=== PATIENT | female | born 1990 | race Caucasian/White ===

== ENCOUNTER 2021-01-04 04:55 | Inpatient (IN) | payer BC ==
[~2021-01-04] VITALS: Ht 162.6 cm; Wt 63.5 kg
[2021-01-04] MEDS ORDERED: MORPHINE SULFATE INJ 4 MG/ML INJ 1ML IV STA (05:41)
[2021-01-04] MEDS ORDERED: SODIUM CHLORIDE 0.9% 1000ML 1,000 ML IV STA ×2 (05:41→07:11)
[2021-01-04] MEDS ORDERED: ONDANSETRON HCL INJ 2MG/ML 2ML 2 MG/ML VIAL IV STA (05:41)
[2021-01-04] MEDS ORDERED: PIPER-TAZ 3.375 GM 50 ML IV ONE (06:30)
[2021-01-04] MEDS ORDERED: VANCOMYCIN 1GM/NS 250 ML 250 ML IV ONE (06:30)
[2021-01-04] MEDS ORDERED: PIPERACILLIN/TAZOBAC 3.375 GM VIAL ONE (06:40)
[2021-01-04] MEDS ORDERED: SODIUM CHLORIDE 0.9% 50ML 50 ML ONE ×3 (06:40→18:00)
[2021-01-04] MEDS ORDERED: VANCOMYCIN 1GM/NS 250 ML 250 ML ONE (06:40)
[2021-01-04] MEDS ORDERED: MORPHINE SULFATE INJ 2 MG/ML SYR IV PRN (06:45)
[2021-01-04] MEDS ORDERED: ONDANSETRON HCL INJ 2MG/ML 2ML 2 MG/ML VIAL IV PRN (06:45)
[2021-01-04 06:55] LABS: INR 1.14; PROTHROMBIN TIME 15.4 seconds (11.9-14.5)
[2021-01-04 06:56] LABS: PARTIAL THROMBOPLASTIN TIME 38.5 seconds (23.8-35.5)
[2021-01-04 07:05] LABS: B-TYPE NATRIURETIC PEPTIDE2 40.4 pg/mL (0-100)
[2021-01-04 07:21] LABS: BASOPHILS # (AUTO) 0.1 (0.0-0.1); BASOPHILS % 0.4 % (0.0-1.0); EOSINOPHILS % 0.3 % (0.0-6.0); HEMATOCRIT 31.5 % (34.2-44.1); HEMOGLOBIN 10.6 g/dL (12.0-16.0); LYMPHOCYTES % 7.3 % (18.0-39.1); MEAN CORPUSCULAR HEMOGLOBIN 27.3 pg (28-32); MEAN CORPUSCULAR HGB CONC 33.7 g/dL (31-35); MEAN CORPUSCULAR VOLUME 81.2 fL (81-99); MONOCYTES # (AUTO) 0.8 (0.2-0.8); MONOCYTES % 5.7 % (4.4-11.3); NEUTROPHILS # (AUTO) 11.7 (2.1-6.9); NEUTROPHILS % 85.3 % (38.7-80.0); PLATELET COUNT 165 x10e3/uL (140-360); RED BLOOD COUNT 3.88 x10e6/uL (3.6-5.1); RED CELL DISTRIBUTION WIDTH 15.8 % (11.7-14.4)
[2021-01-04] MEDS ORDERED: SODIUM CHLORIDE 0.9% 1000ML 1,000 ML ONE (07:21)
[2021-01-04 07:24] LABS: CLARITY,URINE CLOUDY (CLEAR); COLOR,URINE YELLOW (YELLOW); KETONES,URINE NEGATIVE (NEGATIVE); LEUKOCYTE ESTERASE ,URINE TRACE (NEGATIVE); NITRITE,URINE NEGATIVE (NEGATIVE); PROTEIN,URINE DIPSTICK 2+ (NEGATIVE); URINE UROBILINOGEN 0.2 mg/dL (0.2 - 1)
[2021-01-04 07:26] LABS: ALANINE AMINOTRANSFERASE 11 IU/L (0-55); ALBUMIN 2.6 g/dL (3.5-5.0); ALBUMIN/GLOBULIN RATIO 0.6 (0.8-2.0); ALKALINE PHOSPHATASE 105 IU/L (40-150); BLOOD UREA NITROGEN 10 mg/dL (7-26); BUN/CREATININE RATIO 14 (6-25); CALCIUM 8.5 mg/dL (8.4-10.2); CARBON DIOXIDE 21 mmol/L (22-29); CHLORIDE 99 mmol/L (98-107); CREATINE KINASE 39 IU/L (29-168); EST GLOMERULAR FILTRATION RATE > 60 ML/MIN (60-); GLUCOSE 117 mg/dL (74-118); MAGNESIUM 1.5 MG/DL (1.3-2.1); SODIUM 134 mmol/L (136-145)
[2021-01-04 07:29] LABS: AMPHETAMINES SCREEN,URINE POSITIVE (NEGATIVE); BENZODIAZEPINES SCREEN,URINE NEGATIVE (NEGATIVE); PHENCYCLIDINE SCREEN,URINE NEGATIVE (NEGATIVE)
[2021-01-04 07:34] LABS: BACTERIA,URINE FEW /HPF; EPITHELIAL CELLS,URINE MANY /LPF; RBC,URINE 0-5 /HPF (0-5)
[2021-01-04] MEDS ORDERED: POTASSIUM CHLORIDE 20 MEQ TAB CR PO STA ×3 (07:46→21:05)
[2021-01-04] MEDS ORDERED: DOCUSATE SODIUM 100 MG CAP PO PRN (08:15)
[2021-01-04] MEDS ORDERED: KCL 20MEQ/.9 SOD CHL 1,000 ML IV ONE (08:30)
[2021-01-04] MEDS: FAMOTIDINE 20 MG/2 ML VIAL IV SCH ×2 (09:47→21:37)
[2021-01-04] MEDS ORDERED: IOPAMIDOL 370 MG/ML 200 ML INFUS..BTL INJ ONE (10:14)
[2021-01-04 10:18] LABS: HIV 1&2 AB SCREEN NON-REACTIVE (NONREACTIVE)
[2021-01-04 11:00] VITALS: BP 113/71
[2021-01-04] MEDS ORDERED: PNEUMOCOCCAL VACCINE POLYVALENT 23 MCG/0.5 ML VIAL IM SCH (11:00)
[2021-01-04] MEDS ORDERED: INFLUENZA VIRUS VAC SPLIT INJ 0.5 ML SYR IM SCH (11:00)
[2021-01-04] MEDS ORDERED: HYDROMORPHONE 1MG/1ML INJ IV PRN (11:45)
[2021-01-04] MEDS: HYDROMORPHONE 1MG/1ML INJ IV PRN ×3 (12:01→19:20)
[2021-01-04] MEDS: MULTIVITAMINS/MINERALS TAB PO SCH (12:36)
[2021-01-04] MEDS: TRAMADOL HCL 50 MG TAB PO PRN ×2 (14:10→20:11)
[2021-01-04] MEDS: ENOXAPARIN SOD INJ 40 MG/0.4 ML SYR SC SCH (16:38)
[2021-01-04] MEDS: FAMOTIDINE 20 MG TAB PO SCH (16:38)
[2021-01-04] MEDS: CEFEPIME HCL 1GM 1 GM in SODIUM CHLORIDE 0.9% 50ML 50 ML IV SCH (17:47)
[2021-01-04] MEDS ORDERED: CEFEPIME HCL 1 GM VIAL ONE (17:59)
[2021-01-04] MEDS: VANCOMYCIN 1GM/NS 250 ML 250 ML IV SCH (19:19)
[2021-01-04 19:42] LABS: BASOPHILS % 0.4 % (0.0-1.0); EOSINOPHILS # (AUTO) 0.1 (0.0-0.4); EOSINOPHILS % 0.5 % (0.0-6.0); HEMATOCRIT 25.9 % (34.2-44.1); HEMOGLOBIN 8.5 g/dL (12.0-16.0); LYMPHOCYTES # (AUTO) 1.3 (1.0-3.2); MEAN CORPUSCULAR HGB CONC 32.8 g/dL (31-35); MEAN CORPUSCULAR VOLUME 82.2 fL (81-99); MONOCYTES # (AUTO) 0.8 (0.2-0.8); MONOCYTES % 7.2 % (4.4-11.3); NEUTROPHILS # (AUTO) 8.4 (2.1-6.9); NEUTROPHILS % 79.1 % (38.7-80.0); PLATELET COUNT 148 x10e3/uL (140-360); RED BLOOD COUNT 3.15 x10e6/uL (3.6-5.1); RED CELL DISTRIBUTION WIDTH 16.1 % (11.7-14.4)
[2021-01-04 20:00] VITALS: BP 89/55
[2021-01-04 20:07] LABS: ANION GAP 12.6 mmol/L (8-16); BLOOD UREA NITROGEN < 5 mg/dL (7-26); CALCIUM 7.5 mg/dL (8.4-10.2); CARBON DIOXIDE 23 mmol/L (22-29); CHLORIDE 102 mmol/L (98-107); CREATININE, SERUM 0.65 mg/dL (0.57-1.11); EST GLOMERULAR FILTRATION RATE > 60 ML/MIN (60-); GLUCOSE 151 mg/dL (74-118); MAGNESIUM 1.5 MG/DL (1.3-2.1); PHOSPHORUS 1.8 MG/DL (2.3-4.7); SODIUM 135 mmol/L (136-145)
[2021-01-04] MEDS: ACETAMINOPHEN 325 MG TAB PO PRN (20:10)
[2021-01-04 20:14] LABS: CREATINE KINASE MB 0.5 ng/mL (0-5.0)
[2021-01-04 20:33] LABS: BUN/CREATININE RATIO 8 (6-25); POTASSIUM 2.6 mmol/L (3.5-5.1)
[2021-01-04 21:00] VITALS: BP 89/55
[2021-01-04] MEDS ORDERED: POTASSIUM CHLORIDE 10MEQ/100ML 200 ML IV ONE (21:15)
[2021-01-04] MEDS ORDERED: POTASSIUM CHLORIDE 10MEQ/100ML 100 ML IV ONE ×2 (22:45)
[2021-01-04] MEDS ORDERED: SODIUM CHLORIDE 0.9% 250ML 250 ML ONE (23:32)
[2021-01-05] VITALS (7 sets, daily range): BP systolic 94–126; BP diastolic 63–81
[2021-01-05] MEDS: HYDROMORPHONE 1MG/1ML INJ IV PRN ×6 (00:25→21:28)
[2021-01-05] MEDS: TRAMADOL HCL 50 MG TAB PO PRN ×2 (02:55→09:00)
[2021-01-05] MEDS ORDERED: POTASSIUM CHLORIDE 10MEQ/100ML 100 ML IV ONE (03:15)
[2021-01-05] MEDS ORDERED: CEFEPIME HCL 1 GM VIAL ONE ×2 (04:46→17:25)
[2021-01-05] MEDS ORDERED: SODIUM CHLORIDE 0.9% 50ML 50 ML ONE ×2 (04:50→17:26)
[2021-01-05] MEDS: CEFEPIME HCL 1GM 1 GM in SODIUM CHLORIDE 0.9% 50ML 50 ML IV SCH ×2 (05:49→17:28)
[2021-01-05] MEDS ORDERED: VANCOMYCIN 1GM/NS 250 ML 250 ML IV SCH (06:00)
[2021-01-05] MEDS ORDERED: CEFEPIME 1GM/NS 0.9% 50 ML 50 ML IV SCH (06:00)
[2021-01-05 06:12] LABS: HEMATOCRIT 26.5 % (34.2-44.1); HEMOGLOBIN 8.7 g/dL (12.0-16.0); MEAN CORPUSCULAR HGB CONC 32.8 g/dL (31-35); MEAN CORPUSCULAR VOLUME 82.3 fL (81-99); PLATELET COUNT 176 x10e3/uL (140-360); RED BLOOD COUNT 3.22 x10e6/uL (3.6-5.1); RED CELL DISTRIBUTION WIDTH 16.1 % (11.7-14.4)
[2021-01-05 06:27] LABS: ALANINE AMINOTRANSFERASE 11 IU/L (0-55); ALBUMIN 2.1 g/dL (3.5-5.0); ALBUMIN/GLOBULIN RATIO 0.6 (0.8-2.0); ALKALINE PHOSPHATASE 80 IU/L (40-150); ANION GAP 11.8 mmol/L (8-16); BLOOD UREA NITROGEN < 5 mg/dL (7-26); BUN/CREATININE RATIO 8 (6-25); CALCIUM 7.6 mg/dL (8.4-10.2); CARBON DIOXIDE 24 mmol/L (22-29); CHLORIDE 104 mmol/L (98-107); CHOL/HDL RATIO 6.2 (3.0-3.6); CHOLESTEROL 74 MD/DL (0-199); CREATININE, SERUM 0.61 mg/dL (0.57-1.11); EST GLOMERULAR FILTRATION RATE > 60 ML/MIN (60-); GLUCOSE 114 mg/dL (74-118); HDL CHOLESTEROL 12 MG/DL (40-60); LDL CHOLESTEROL 49 MG/DL (60-130); POTASSIUM 3.8 mmol/L (3.5-5.1); SODIUM 136 mmol/L (136-145); TRIGLYCERIDES 63 MG/DL (0-149)
[2021-01-05 06:51] LABS: CREATINE KINASE MB 0.4 ng/mL (0-5.0)
[2021-01-05] MEDS: ACETAMINOPHEN 325 MG TAB PO PRN (06:56)
[2021-01-05 07:18] LABS: BAND NEUTROPHILS % (MANUAL) 2 %; LYMPHOCYTES % (MANUAL) 9 % (19-48); MONOCYTES % (MANUAL) 5 % (3.4-9.0); NEUTROPHILS % (MANUAL) 84 % (40-74)
[2021-01-05] MEDS: FAMOTIDINE 20 MG TAB PO SCH ×2 (07:30→17:28)
[2021-01-05] MEDS: FAMOTIDINE 20 MG/2 ML VIAL IV SCH (08:33)
[2021-01-05] MEDS: MULTIVITAMINS/MINERALS TAB PO SCH (08:33)
[2021-01-05] MEDS: VANCOMYCIN 1GM/NS 250 ML 250 ML IV SCH ×2 (09:15→20:46)
[2021-01-05] MEDS: HYDROCODONE/APAP 5MG-325MG TAB PO PRN ×2 (15:20→21:34)
[2021-01-06] VITALS (11 sets, daily range): BP systolic 103–130; BP diastolic 71–92
[2021-01-06] MEDS: HYDROMORPHONE 1MG/1ML INJ IV PRN ×6 (01:28→21:25)
[2021-01-06] MEDS: ACETAMINOPHEN 325 MG TAB PO PRN ×2 (03:38→21:35)
[2021-01-06] MEDS: HYDROCODONE/APAP 5MG-325MG TAB PO PRN ×3 (04:19→19:35)
[2021-01-06 05:48] LABS: BASOPHILS # (AUTO) 0.1 (0.0-0.1); BASOPHILS % 0.4 % (0.0-1.0); EOSINOPHILS # (AUTO) 0.3 (0.0-0.4); EOSINOPHILS % 2.3 % (0.0-6.0); HEMATOCRIT 27.1 % (34.2-44.1); LYMPHOCYTES # (AUTO) 2.4 (1.0-3.2); LYMPHOCYTES % 19.6 % (18.0-39.1); MEAN CORPUSCULAR HEMOGLOBIN 27.4 pg (28-32); MEAN CORPUSCULAR HGB CONC 33.2 g/dL (31-35); MEAN CORPUSCULAR VOLUME 82.4 fL (81-99); MONOCYTES % 8.2 % (4.4-11.3); NEUTROPHILS # (AUTO) 8.2 (2.1-6.9); NEUTROPHILS % 67.6 % (38.7-80.0); PLATELET COUNT 238 x10e3/uL (140-360); RED BLOOD COUNT 3.29 x10e6/uL (3.6-5.1)
[2021-01-06 06:25] LABS: INR 1.27; PROTHROMBIN TIME 16.8 seconds (11.9-14.5)
[2021-01-06 06:26] LABS: PARTIAL THROMBOPLASTIN TIME 47.1 seconds (23.8-35.5)
[2021-01-06 06:52] LABS: ANION GAP 10.5 mmol/L (8-16); BLOOD UREA NITROGEN < 5 mg/dL (7-26); CALCIUM 8.3 mg/dL (8.4-10.2); CARBON DIOXIDE 25 mmol/L (22-29); CHLORIDE 101 mmol/L (98-107); CREATININE, SERUM 0.61 mg/dL (0.57-1.11); EST GLOMERULAR FILTRATION RATE > 60 ML/MIN (60-); GLUCOSE 114 mg/dL (74-118); POTASSIUM 3.5 mmol/L (3.5-5.1); SODIUM 133 mmol/L (136-145)
[2021-01-06 06:54] LABS: BUN/CREATININE RATIO 8 (6-25)
[2021-01-06] MEDS: FAMOTIDINE 20 MG TAB PO SCH ×2 (07:30→17:25)
[2021-01-06] MEDS ORDERED: BENZOCAINE 20% SPR 60 ML CAN ONE (08:44)
[2021-01-06] MEDS ORDERED: SODIUM CHLORIDE 0.9% 1000ML 1,000 ML ONE (08:52)
[2021-01-06] MEDS: VANCOMYCIN 1GM/NS 250 ML 250 ML IV SCH ×2 (09:52→21:01)
[2021-01-06] MEDS ORDERED: FENTANYL CITRATE/PF 100MCG/2 ML INJ ONE (12:15)
[2021-01-06] MEDS ORDERED: MIDAZOLAM HCL 5 MG/ML VIAL ONE (12:15)
[2021-01-06] MEDS ORDERED: PROPOFOL IV EMULSION 10 MG/ML 20 ML VIAL ONE (12:41)
[2021-01-06] MEDS: MULTIVITAMINS/MINERALS TAB PO SCH (17:25)
[2021-01-06] MEDS: METOPROLOL SUCCINATE 25 MG TAB XL PO SCH (17:25)
[2021-01-07] VITALS (8 sets, daily range): BP systolic 100–132; BP diastolic 62–96
[2021-01-07] MEDS: HYDROCODONE/APAP 5MG-325MG TAB PO PRN ×4 (01:35→20:44)
[2021-01-07] MEDS: HYDROMORPHONE 1MG/1ML INJ IV PRN ×5 (03:20→23:45)
[2021-01-07] MEDS: FAMOTIDINE 20 MG TAB PO SCH ×2 (08:16→16:59)
[2021-01-07] MEDS: MULTIVITAMINS/MINERALS TAB PO SCH (08:16)
[2021-01-07] MEDS: VANCOMYCIN 1GM/NS 250 ML 250 ML IV SCH (08:16)
[2021-01-07] MEDS: METOPROLOL SUCCINATE 25 MG TAB XL PO SCH (08:17)
[2021-01-07] MEDS: ACETAMINOPHEN 325 MG TAB PO PRN (08:19)
[2021-01-07 08:42] LABS: BASOPHILS # (AUTO) 0.1 (0.0-0.1); BASOPHILS % 0.4 % (0.0-1.0); EOSINOPHILS # (AUTO) 0.3 (0.0-0.4); EOSINOPHILS % 2.4 % (0.0-6.0); HEMATOCRIT 27.5 % (34.2-44.1); LYMPHOCYTES # (AUTO) 1.6 (1.0-3.2); MEAN CORPUSCULAR HEMOGLOBIN 26.9 pg (28-32); MEAN CORPUSCULAR HGB CONC 32.7 g/dL (31-35); MEAN CORPUSCULAR VOLUME 82.3 fL (81-99); MONOCYTES # (AUTO) 0.7 (0.2-0.8); MONOCYTES % 5.4 % (4.4-11.3); NEUTROPHILS # (AUTO) 10.6 (2.1-6.9); NEUTROPHILS % 77.5 % (38.7-80.0); PLATELET COUNT 334 x10e3/uL (140-360); RED BLOOD COUNT 3.34 x10e6/uL (3.6-5.1)
[2021-01-07] MEDS ORDERED: POTASSIUM CHLORIDE 20 MEQ TAB CR PO ONE (10:30)
[2021-01-07] MEDS ORDERED: DAPTOMYCIN 500mg 10ML 500 MG in SODIUM CHLORIDE 0.9% 100 ML IV SCH (14:00)
[2021-01-07] MEDS: ENOXAPARIN SOD INJ 40 MG/0.4 ML SYR SC SCH (16:59)
[2021-01-08] VITALS (7 sets, daily range): BP systolic 107–134; BP diastolic 63–98
[2021-01-08] MEDS: ACETAMINOPHEN 325 MG TAB PO PRN (01:19)
[2021-01-08] MEDS: HYDROCODONE/APAP 5MG-325MG TAB PO PRN ×2 (02:45→08:54)
[2021-01-08] MEDS: HYDROMORPHONE 1MG/1ML INJ IV PRN ×5 (03:45→20:00)
[2021-01-08 06:46] LABS: BASOPHILS # (AUTO) 0.1 (0.0-0.1); BASOPHILS % 0.5 % (0.0-1.0); EOSINOPHILS # (AUTO) 0.5 (0.0-0.4); EOSINOPHILS % 3.8 % (0.0-6.0); HEMOGLOBIN 9.1 g/dL (12.0-16.0); LYMPHOCYTES # (AUTO) 2.1 (1.0-3.2); LYMPHOCYTES % 15.5 % (18.0-39.1); MEAN CORPUSCULAR HGB CONC 32.5 g/dL (31-35); MEAN CORPUSCULAR VOLUME 83.1 fL (81-99); MONOCYTES % 7.2 % (4.4-11.3); NEUTROPHILS # (AUTO) 9.2 (2.1-6.9); NEUTROPHILS % 69.4 % (38.7-80.0); PLATELET COUNT 384 x10e3/uL (140-360); RED BLOOD COUNT 3.37 x10e6/uL (3.6-5.1); RED CELL DISTRIBUTION WIDTH 15.9 % (11.7-14.4)
[2021-01-08 07:00] LABS: ANION GAP 13.2 mmol/L (8-16); BLOOD UREA NITROGEN < 5 mg/dL (7-26); CALCIUM 8.3 mg/dL (8.4-10.2); CARBON DIOXIDE 26 mmol/L (22-29); CHLORIDE 106 mmol/L (98-107); CREATININE, SERUM 0.56 mg/dL (0.57-1.11); EST GLOMERULAR FILTRATION RATE > 60 ML/MIN (60-); GLUCOSE 104 mg/dL (74-118); POTASSIUM 4.2 mmol/L (3.5-5.1); SODIUM 141 mmol/L (136-145)
[2021-01-08 07:01] LABS: BUN/CREATININE RATIO 9 (6-25)
[2021-01-08] MEDS: MULTIVITAMINS/MINERALS TAB PO SCH (08:49)
[2021-01-08] MEDS: FAMOTIDINE 20 MG TAB PO SCH ×2 (08:49→15:58)
[2021-01-08] MEDS: METOPROLOL SUCCINATE 25 MG TAB XL PO SCH (08:52)
[2021-01-08] MEDS ORDERED: ONDANSETRON HCL 4 MG ORAL DISINTEGRATING TAB PO PRN (11:45)
[2021-01-08] MEDS ORDERED: SODIUM CHLORIDE 0.9% 50ML 50 ML ONE (11:49)
[2021-01-08] MEDS ORDERED: IOPAMIDOL 370 MG/ML 200 ML INFUS..BTL INJ ONE (11:49)
[2021-01-08 13:04] LABS: HIV 1&2 AB SCREEN NON-REACTIVE (NONREACTIVE)
[2021-01-08] MEDS: CEFAZOLIN SOD 1 GM/NS 50ML 50 ML IV SCH ×2 (14:33→22:01)
[2021-01-08] MEDS: HYDROCODONE/APAP 7.5MG-325MG 1 EA TAB PO PRN ×2 (15:06→21:05)
[2021-01-08] MEDS: ENOXAPARIN SOD INJ 40 MG/0.4 ML SYR SC SCH (15:58)
[2021-01-09] VITALS (7 sets, daily range): BP systolic 111–153; BP diastolic 73–83
[2021-01-09] MEDS: HYDROCODONE/APAP 7.5MG-325MG 1 EA TAB PO PRN ×4 (03:15→21:40)
[2021-01-09] MEDS: HYDROMORPHONE 1MG/1ML INJ IV PRN ×6 (04:10→20:11)
[2021-01-09] MEDS: CEFAZOLIN SOD 1 GM/NS 50ML 50 ML IV SCH ×3 (05:44→21:55)
[2021-01-09] MEDS: FAMOTIDINE 20 MG TAB PO SCH ×2 (07:30→16:11)
[2021-01-09] MEDS: MULTIVITAMINS/MINERALS TAB PO SCH (09:00)
[2021-01-09] MEDS: METOPROLOL SUCCINATE 25 MG TAB XL PO SCH (09:00)
[2021-01-09] MEDS: ENOXAPARIN SOD INJ 40 MG/0.4 ML SYR SC SCH (16:11)
[2021-01-09] MEDS: MIRTAZAPINE 15 MG TAB PO SCH (20:25)
[2021-01-10] VITALS (7 sets, daily range): BP systolic 91–116; BP diastolic 56–72
[2021-01-10] MEDS: HYDROMORPHONE 1MG/1ML INJ IV PRN ×6 (00:11→22:35)
[2021-01-10] MEDS: ZOLPIDEM TARTRATE 5 MG TAB PO PRN ×2 (00:21→21:56)
[2021-01-10] MEDS: HYDROCODONE/APAP 7.5MG-325MG 1 EA TAB PO PRN ×3 (04:07→16:39)
[2021-01-10] MEDS: CEFAZOLIN SOD 1 GM/NS 50ML 50 ML IV SCH ×3 (05:10→22:36)
[2021-01-10] MEDS: FAMOTIDINE 20 MG TAB PO SCH ×2 (09:04→16:39)
[2021-01-10] MEDS: MULTIVITAMINS/MINERALS TAB PO SCH (09:04)
[2021-01-10] MEDS: METOPROLOL SUCCINATE 25 MG TAB XL PO SCH (09:06)
[2021-01-10] MEDS: ENOXAPARIN SOD INJ 40 MG/0.4 ML SYR SC SCH (16:39)
[2021-01-10] MEDS: MIRTAZAPINE 15 MG TAB PO SCH (21:54)
[2021-01-11] VITALS (9 sets, daily range): BP systolic 87–112; BP diastolic 55–82
[2021-01-11] MEDS: HYDROCODONE/APAP 7.5MG-325MG 1 EA TAB PO PRN ×4 (00:28→19:50)
[2021-01-11] MEDS: HYDROMORPHONE 1MG/1ML INJ IV PRN ×5 (03:33→22:14)
[2021-01-11] MEDS: CEFAZOLIN SOD 1 GM/NS 50ML 50 ML IV SCH ×3 (06:01→22:13)
[2021-01-11] MEDS: FAMOTIDINE 20 MG TAB PO SCH ×2 (06:30→17:40)
[2021-01-11] MEDS: METOPROLOL SUCCINATE 25 MG TAB XL PO SCH (09:00)
[2021-01-11] MEDS: MULTIVITAMINS/MINERALS TAB PO SCH (09:00)
[2021-01-11] MEDS: MIRTAZAPINE 15 MG TAB PO SCH (20:38)
[2021-01-12] VITALS (8 sets, daily range): BP systolic 100–132; BP diastolic 72–77
[2021-01-12] MEDS: HYDROMORPHONE 1MG/1ML INJ IV PRN ×6 (02:26→23:15)
[2021-01-12] MEDS: HYDROCODONE/APAP 7.5MG-325MG 1 EA TAB PO PRN ×5 (03:45→21:47)
[2021-01-12 04:52] LABS: BASOPHILS % 0.8 % (0.0-1.0); EOSINOPHILS % 3.6 % (0.0-6.0); HEMATOCRIT 30.2 % (34.2-44.1); HEMOGLOBIN 9.3 g/dL (12.0-16.0); LYMPHOCYTES % 25.5 % (18.0-39.1); MEAN CORPUSCULAR HEMOGLOBIN 26.6 pg (28-32); MEAN CORPUSCULAR HGB CONC 30.8 g/dL (31-35); MEAN CORPUSCULAR VOLUME 86.5 fL (81-99); MONOCYTES % 5.9 % (4.4-11.3); PLATELET COUNT 492 x10e3/uL (140-360); RED BLOOD COUNT 3.49 x10e6/uL (3.6-5.1); RED CELL DISTRIBUTION WIDTH 15.6 % (11.7-14.4)
[2021-01-12 04:53] LABS: BASOPHILS # (AUTO) 0.1 (0.0-0.1); EOSINOPHILS # (AUTO) 0.4 (0.0-0.4); LYMPHOCYTES # (AUTO) 2.6 (1.0-3.2); MONOCYTES # (AUTO) 0.6 (0.2-0.8); NEUTROPHILS # (AUTO) 6.4 (2.1-6.9)
[2021-01-12 05:28] LABS: ANION GAP 14.2 mmol/L (8-16); BLOOD UREA NITROGEN 9 mg/dL (7-26); BUN/CREATININE RATIO 14 (6-25); CALCIUM 8.7 mg/dL (8.4-10.2); CARBON DIOXIDE 27 mmol/L (22-29); CHLORIDE 102 mmol/L (98-107); CREATININE, SERUM 0.64 mg/dL (0.57-1.11); EST GLOMERULAR FILTRATION RATE > 60 ML/MIN (60-); GLUCOSE 99 mg/dL (74-118); POTASSIUM 4.2 mmol/L (3.5-5.1); SODIUM 139 mmol/L (136-145)
[2021-01-12] MEDS: CEFAZOLIN SOD 1 GM/NS 50ML 50 ML IV SCH ×3 (06:36→21:09)
[2021-01-12] MEDS: MULTIVITAMINS/MINERALS TAB PO SCH (08:43)
[2021-01-12] MEDS: FAMOTIDINE 20 MG TAB PO SCH ×2 (08:43→18:00)
[2021-01-12] MEDS: METOPROLOL SUCCINATE 25 MG TAB XL PO SCH (08:44)
[2021-01-12] MEDS: MIRTAZAPINE 15 MG TAB PO SCH (21:09)
[2021-01-12] MEDS: ZOLPIDEM TARTRATE 5 MG TAB PO PRN (21:47)
[2021-01-12] MEDS ORDERED: MICAFUNGIN SODIUM 100 MG in MICAFUNGIN SODIUM 100 ML IV SCH (22:30)
[2021-01-13] VITALS: BP 98/60
[2021-01-13] MEDS: HYDROMORPHONE 1MG/1ML INJ IV PRN ×2 (03:15→07:16)
[2021-01-13] MEDS: HYDROCODONE/APAP 7.5MG-325MG 1 EA TAB PO PRN ×4 (03:50→23:15)
[2021-01-13 04:00] VITALS: BP 85/52
[2021-01-13] MEDS: CEFAZOLIN SOD 1 GM/NS 50ML 50 ML IV SCH ×3 (06:02→22:10)
[2021-01-13 08:14] VITALS: BP 96/71
[2021-01-13] MEDS: FAMOTIDINE 20 MG TAB PO SCH ×2 (09:57→16:09)
[2021-01-13] MEDS: MULTIVITAMINS/MINERALS TAB PO SCH (09:57)
[2021-01-13] MEDS: MICAFUNGIN SODIUM 100 MG in MICAFUNGIN SODIUM 100 ML IV SCH (10:01)
[2021-01-13] MEDS ORDERED: HYDROMORPHONE 1MG/1ML INJ IV PRN (11:45)
[2021-01-13] MEDS: METOPROLOL SUCCINATE 25 MG TAB XL PO SCH (11:46)
[2021-01-13] MEDS: HYDROMORPHONE 2MG/ML 2 MG/ML ML IV PRN ×4 (11:47→20:20)
[2021-01-13 11:51] VITALS: BP 120/85
[2021-01-13 16:27] VITALS: BP 105/64
[2021-01-13 20:00] VITALS: BP 124/89
[2021-01-13] MEDS ORDERED: SODIUM CHLORIDE 0.9% 250ML 250 ML ONE (21:59)
[2021-01-13] MEDS: MIRTAZAPINE 15 MG TAB PO SCH (22:09)
[2021-01-13] MEDS: ZOLPIDEM TARTRATE 5 MG TAB PO PRN (22:10)
[2021-01-14] VITALS: BP 116/70
[2021-01-14] MEDS: HYDROMORPHONE 2MG/ML 2 MG/ML ML IV PRN ×4 (00:40→13:10)
[2021-01-14 04:00] VITALS: BP 107/72
[2021-01-14] MEDS: CEFAZOLIN SOD 1 GM/NS 50ML 50 ML IV SCH (05:35)
[2021-01-14] MEDS: HYDROCODONE/APAP 7.5MG-325MG 1 EA TAB PO PRN ×2 (05:35→11:30)
[2021-01-14 06:49] LABS: BASOPHILS # (AUTO) 0.1 (0.0-0.1); BASOPHILS % 0.7 % (0.0-1.0); EOSINOPHILS # (AUTO) 0.4 (0.0-0.4); EOSINOPHILS % 4.2 % (0.0-6.0); HEMATOCRIT 33.2 % (34.2-44.1); HEMOGLOBIN 10.2 g/dL (12.0-16.0); LYMPHOCYTES # (AUTO) 2.8 (1.0-3.2); LYMPHOCYTES % 29.7 % (18.0-39.1); MEAN CORPUSCULAR HEMOGLOBIN 26.9 pg (28-32); MEAN CORPUSCULAR HGB CONC 30.7 g/dL (31-35); MEAN CORPUSCULAR VOLUME 87.6 fL (81-99); MONOCYTES # (AUTO) 0.7 (0.2-0.8); MONOCYTES % 7.7 % (4.4-11.3); NEUTROPHILS # (AUTO) 5.4 (2.1-6.9); NEUTROPHILS % 56.2 % (38.7-80.0); PLATELET COUNT 559 x10e3/uL (140-360); RED BLOOD COUNT 3.79 x10e6/uL (3.6-5.1); RED CELL DISTRIBUTION WIDTH 14.8 % (11.7-14.4)
[2021-01-14 07:09] LABS: ANION GAP 14.3 mmol/L (8-16); BLOOD UREA NITROGEN 9 mg/dL (7-26); BUN/CREATININE RATIO 13 (6-25); CALCIUM 8.7 mg/dL (8.4-10.2); CARBON DIOXIDE 25 mmol/L (22-29); CHLORIDE 104 mmol/L (98-107); CREATININE, SERUM 0.67 mg/dL (0.57-1.11); EST GLOMERULAR FILTRATION RATE > 60 ML/MIN (60-); GLUCOSE 83 mg/dL (74-118); POTASSIUM 4.3 mmol/L (3.5-5.1); SODIUM 139 mmol/L (136-145)
[2021-01-14 07:38] VITALS: BP 103/65
[2021-01-14 08:39] VITALS: BP 103/65
[2021-01-14] MEDS: METOPROLOL SUCCINATE 25 MG TAB XL PO SCH (09:14)
[2021-01-14] MEDS: MICAFUNGIN SODIUM 100 MG in MICAFUNGIN SODIUM 100 ML IV SCH (09:14)
[2021-01-14] MEDS: FAMOTIDINE 20 MG TAB PO SCH (09:14)
[2021-01-14] MEDS: MULTIVITAMINS/MINERALS TAB PO SCH (09:15)
[2021-01-14 11:20] VITALS: BP 112/67
== END 2021-01-14 14:43 | disposition home or self-care (01) | DRG 871 ==
LOC: ER 05:43 → ERHOLD 06:43 → MED/SURG2 10:48
PROVIDERS: ADMIT Internal Medicine; ATTEND Internal Medicine
PROC: 02HV33Z Insertion of Infusion Device into Superior Vena Cava, Percutaneous Approach (ICD-10-PCS; principal; 2021-01-04)
DX: A41.01 Sepsis due to Methicillin susceptible Staphylococcus aureus (principal); R65.21 Severe sepsis with septic shock; I26.90 Septic pulmonary embolism without acute cor pulmonale; T80.219A Unspecified infection due to central venous catheter, initial encounter; N39.0 Urinary tract infection, site not specified; E87.1 Hypo-osmolality and hyponatremia; F11.20 Opioid dependence, uncomplicated; A41.9 Sepsis, unspecified organism; Z20.822 Contact with and (suspected) exposure to COVID-19; E87.6 Hypokalemia; I07.9 Rheumatic tricuspid valve disease, unspecified; D64.9 Anemia, unspecified; I07.1 Rheumatic tricuspid insufficiency; I49.3 Ventricular premature depolarization
CPT/HCPCS: 36415; 36569; 70450; 70460; 71045; 71046; 71260; 74177; 80048; 80053; 80061; 80202; 80307; 81001; 82550; 82553; 83605; 83735; 83880; 84100; 84132; 84484; 84702; 85007; 85025; 85027; 85379; 85610; 85651; 85730; 87040; 87071; 87086; 87186; 87205; 87390; 93005; 93306; 93307; 93312; 93325; 99284; G0433; G0435; J0690; J0692; J1170; J1650; J2248; J2250; J2270; J2405; J2543; J3010; J3370; J3480; J7030; J7050; Q9967; U0002

== ENCOUNTER 2021-02-04 15:46 | Inpatient (IN) | payer BC ==
[~2021-02-04] VITALS: Ht 167.6 cm; Wt 65.8 kg
[2021-02-04 16:14] LABS: BASOPHILS # (AUTO) 0.1 (0.0-0.1); BASOPHILS % 0.4 % (0.0-1.0); EOSINOPHILS % 0.1 % (0.0-6.0); HEMATOCRIT 30.7 % (34.2-44.1); LYMPHOCYTES # (AUTO) 0.9 (1.0-3.2); LYMPHOCYTES % 6.6 % (18.0-39.1); MEAN CORPUSCULAR HEMOGLOBIN 26.3 pg (28-32); MEAN CORPUSCULAR HGB CONC 32.6 g/dL (31-35); MEAN CORPUSCULAR VOLUME 80.8 fL (81-99); MONOCYTES # (AUTO) 0.9 (0.2-0.8); NEUTROPHILS # (AUTO) 12.1 (2.1-6.9); NEUTROPHILS % 85.6 % (38.7-80.0); PLATELET COUNT 147 x10e3/uL (140-360); RED CELL DISTRIBUTION WIDTH 15.2 % (11.7-14.4)
[2021-02-04 16:24] LABS: INR 1.7; PROTHROMBIN TIME 20.7 seconds (11.9-14.5)
[2021-02-04 16:30] LABS: ALBUMIN 2.6 g/dL (3.5-5.0); ALBUMIN/GLOBULIN RATIO 0.5 (0.8-2.0); ANION GAP 19.8 mmol/L (8-16); CALCIUM 8.7 mg/dL (8.4-10.2); CREATININE, SERUM 1.39 mg/dL (0.57-1.11); POTASSIUM 3.8 mmol/L (3.5-5.1)
[2021-02-04] MEDS ORDERED: ACETAMINOPHEN 325 MG TAB PO ONE (16:30)
[2021-02-04] MEDS ORDERED: SODIUM CHLORIDE 0.9% 1000ML 2,000 ML IV SCH (17:00)
[2021-02-04] MEDS ORDERED: CEFEPIME HCL 1 GM VIAL IV SCH (17:15)
[2021-02-04] MEDS: CEFEPIME HCL 1GM 1 GM in SODIUM CHLORIDE 0.9% 50ML 50 ML IV SCH (17:36)
[2021-02-04] MEDS: VANCOMYCIN 750MG/NS 150ML IVPB 150 ML IV SCH (18:08)
[2021-02-04] MEDS ORDERED: SODIUM CHLORIDE 0.9% 1000ML 1,000 ML ONE (19:46)
[2021-02-04] MEDS ORDERED: SODIUM CHLORIDE 0.9% 50ML 50 ML ONE (20:24)
[2021-02-04] MEDS ORDERED: IOPAMIDOL 370 MG/ML 200 ML INFUS..BTL INJ ONE (20:25)
[2021-02-04] MEDS ORDERED: SODIUM CHLORIDE 0.9% 1000ML 1,000 ML IV ONE (20:30)
[2021-02-04] MEDS ORDERED: ONDANSETRON HCL INJ 2MG/ML 2ML 2 MG/ML VIAL IV STA (20:52)
[2021-02-04] MEDS ORDERED: NALOXONE HCL 2MG/2 ML SYRINGE ONE (20:54)
[2021-02-04] MEDS ORDERED: NALOXONE HCL 2MG/2 ML SYRINGE IV ONE (21:00)
[2021-02-04] MEDS ORDERED: ONDANSETRON HCL INJ 2MG/ML 2ML 2 MG/ML VIAL ONE (21:05)
[2021-02-04] MEDS ORDERED: CEFEPIME HCL 2 GM/SOD CHL 0.9% 100 ML BAG IV SCH (22:00)
[2021-02-04] MEDS ORDERED: VANCOMYCIN HCL 1GM/NS 250 ML BAG IV SCH (22:00)
[2021-02-04 22:24] LABS: CREATINE KINASE MB 13.1 ng/mL (0-5.0)
[2021-02-04] MEDS: SODIUM CHLORIDE 0.9% 1000ML 1,000 ML IV SCH (22:58)
[2021-02-04 23:30] VITALS: BP 98/62
[2021-02-04 23:56] VITALS: BP 93/59
[2021-02-05] VITALS (27 sets, daily range): BP systolic 79–109; BP diastolic 44–95
[2021-02-05] MEDS: ALBUTEROL SULF 0.083% NEB SOLN 3 ML NEB NEB SCH ×6 (01:00→19:45)
[2021-02-05] MEDS: IPRATROPIUM BROMIDE 0.02% 2.5 ML NEB NEB SCH ×4 (03:15→19:45)
[2021-02-05] MEDS ORDERED: CEFEPIME HCL 1 GM VIAL ONE (04:21)
[2021-02-05 04:49] LABS: BASOPHILS # (AUTO) 0.1 (0.0-0.1); BASOPHILS % 0.7 % (0.0-1.0); EOSINOPHILS % 0.1 % (0.0-6.0); HEMATOCRIT 22.6 % (34.2-44.1); HEMOGLOBIN 7.2 g/dL (12.0-16.0); LYMPHOCYTES # (AUTO) 0.9 (1.0-3.2); LYMPHOCYTES % 6.8 % (18.0-39.1); MEAN CORPUSCULAR HEMOGLOBIN 26.3 pg (28-32); MEAN CORPUSCULAR HGB CONC 31.9 g/dL (31-35); MEAN CORPUSCULAR VOLUME 82.5 fL (81-99); MONOCYTES # (AUTO) 1.1 (0.2-0.8); MONOCYTES % 8.5 % (4.4-11.3); PLATELET COUNT 119 x10e3/uL (140-360); RED BLOOD COUNT 2.74 x10e6/uL (3.6-5.1); RED CELL DISTRIBUTION WIDTH 15.2 % (11.7-14.4)
[2021-02-05] MEDS: CEFEPIME HCL 1GM 1 GM in SODIUM CHLORIDE 0.9% 50ML 50 ML IV SCH (04:52)
[2021-02-05] MEDS: SODIUM CHLORIDE 0.9% 1000ML 1,000 ML IV SCH ×3 (04:52→22:16)
[2021-02-05] MEDS ORDERED: SODIUM CHLORIDE 0.9% 50ML 50 ML ONE (05:05)
[2021-02-05 05:10] LABS: ALANINE AMINOTRANSFERASE 33 IU/L (0-55); ALBUMIN 1.7 g/dL (3.5-5.0); ALBUMIN/GLOBULIN RATIO 0.5 (0.8-2.0); ALKALINE PHOSPHATASE 67 IU/L (40-150); ANION GAP 12.8 mmol/L (8-16); BLOOD UREA NITROGEN 29 mg/dL (7-26); BUN/CREATININE RATIO 37 (6-25); CARBON DIOXIDE 18 mmol/L (22-29); CHLORIDE 112 mmol/L (98-107); CREATININE, SERUM 0.79 mg/dL (0.57-1.11); EST GLOMERULAR FILTRATION RATE > 60 ML/MIN (60-); GLUCOSE 107 mg/dL (74-118); SODIUM 140 mmol/L (136-145)
[2021-02-05 05:18] LABS: CALCIUM 6.7 mg/dL (8.4-10.2); POTASSIUM 2.8 mmol/L (3.5-5.1)
[2021-02-05] MEDS ORDERED: POTASSIUM CHLORIDE 20 MEQ TAB CR PO STA (05:39)
[2021-02-05] MEDS: VANCOMYCIN 750MG/NS 150ML IVPB 150 ML IV SCH (06:22)
[2021-02-05] MEDS ORDERED: CALCIUM GLUCONATE 10% INJ 0.465 MEQ/ML VIAL ONE (06:23)
[2021-02-05] MEDS ORDERED: CALCIUM GLUCONATE 10% INJ 4.65 MEQ in SODIUM CHLORIDE 0.9% 50ML 50 ML IV ONE ×2 (06:30→17:45)
[2021-02-05] MEDS ORDERED: POTASSIUM CHLORIDE 20 MEQ TAB CR PO ONE ×2 (06:35→17:30)
[2021-02-05 06:36] LABS: ANISOCYTOSIS SLIGHT; LYMPHOCYTES % (MANUAL) 10 % (19-48); MONOCYTES % (MANUAL) 6 % (3.4-9.0); NEUTROPHILS % (MANUAL) 84 % (40-74); PLATELET ESTIMATE SLIGHTLY DECREASED
[2021-02-05 06:37] LABS: PLATELET MORPHOLOGY COMMENT NORMAL; POIKILOCYTOSIS SLIGHT; RBC MORPHOLOGY COMMENT NORMAL
[2021-02-05] MEDS ORDERED: POTASSIUM CHLORIDE 20 MEQ TAB CR PO SCH (08:00)
[2021-02-05] MEDS: METHADONE HCL 10 MG TAB PO SCH ×2 (10:16→21:23)
[2021-02-05] MEDS: DAPTOMYCIN 500mg 10ML 400 MG in SODIUM CHLORIDE 0.9% 100 ML IV SCH (13:23)
[2021-02-05] MEDS: SODIUM CHLORIDE 0.9% 250ML 250 ML IV SCH (14:44)
[2021-02-05 16:33] LABS: ANION GAP 10.7 mmol/L (8-16); BLOOD UREA NITROGEN 20 mg/dL (7-26); BUN/CREATININE RATIO 29 (6-25); CARBON DIOXIDE 18 mmol/L (22-29); CHLORIDE 114 mmol/L (98-107); CREATININE, SERUM 0.68 mg/dL (0.57-1.11); EST GLOMERULAR FILTRATION RATE > 60 ML/MIN (60-); GLUCOSE 103 mg/dL (74-118); MAGNESIUM 1.6 MG/DL (1.3-2.1); SODIUM 140 mmol/L (136-145)
[2021-02-05 16:44] LABS: BASOPHILS % 0.3 % (0.0-1.0); EOSINOPHILS # (AUTO) 0.1 (0.0-0.4); EOSINOPHILS % 0.4 % (0.0-6.0); LYMPHOCYTES # (AUTO) 1.1 (1.0-3.2); LYMPHOCYTES % 9.1 % (18.0-39.1); MEAN CORPUSCULAR HEMOGLOBIN 26.3 pg (28-32); MEAN CORPUSCULAR HGB CONC 32.4 g/dL (31-35); MEAN CORPUSCULAR VOLUME 81.1 fL (81-99); MONOCYTES # (AUTO) 0.9 (0.2-0.8); MONOCYTES % 7.3 % (4.4-11.3); NEUTROPHILS # (AUTO) 9.7 (2.1-6.9); PLATELET COUNT 133 x10e3/uL (140-360); RED BLOOD COUNT 2.59 x10e6/uL (3.6-5.1); RED CELL DISTRIBUTION WIDTH 15.4 % (11.7-14.4)
[2021-02-05] MEDS ORDERED: SODIUM CHLORIDE 0.9% 1000ML 500 ML IV SCH (16:45)
[2021-02-05 16:48] LABS: CALCIUM 6.8 mg/dL (8.4-10.2); POTASSIUM 2.7 mmol/L (3.5-5.1)
[2021-02-05 16:49] LABS: HEMOGLOBIN 6.8 g/dL (12.0-16.0)
[2021-02-05 16:51] LABS: CREATINE KINASE 182 IU/L (29-168)
[2021-02-05] MEDS ORDERED: SODIUM CHLORIDE 0.9% 250ML 250 ML IV ONE (17:15)
[2021-02-05] MEDS: ACETAMINOPHEN 325 MG TAB PO PRN (17:54)
[2021-02-05] MEDS ORDERED: VANCOMYCIN 1GM/NS 250 ML 250 ML IV SCH (18:00)
[2021-02-05] MEDS ORDERED: POTASSIUM CHLORIDE 10MEQ EA PO ONE ×2 (19:30→21:30)
[2021-02-05] MEDS: NOREPINEPHRINE 8 MG/D5W 250 ML 250 ML IV SCH (21:04)
[2021-02-06] VITALS (26 sets, daily range): BP systolic 82–127; BP diastolic 49–92
[2021-02-06] MEDS: IPRATROPIUM BROMIDE 0.02% 2.5 ML NEB NEB SCH ×4 (01:00→18:37)
[2021-02-06] MEDS: ALBUTEROL SULF 0.083% NEB SOLN 3 ML NEB NEB SCH ×6 (04:00→18:37)
[2021-02-06 06:14] LABS: BASOPHILS % 0.3 % (0.0-1.0); EOSINOPHILS # (AUTO) 0.1 (0.0-0.4); EOSINOPHILS % 0.7 % (0.0-6.0); HEMOGLOBIN 7.1 g/dL (12.0-16.0); LYMPHOCYTES # (AUTO) 1.7 (1.0-3.2); LYMPHOCYTES % 13.8 % (18.0-39.1); MEAN CORPUSCULAR HEMOGLOBIN 27.5 pg (28-32); MEAN CORPUSCULAR HGB CONC 33.2 g/dL (31-35); MEAN CORPUSCULAR VOLUME 82.9 fL (81-99); MONOCYTES # (AUTO) 0.8 (0.2-0.8); MONOCYTES % 6.5 % (4.4-11.3); NEUTROPHILS # (AUTO) 9.3 (2.1-6.9); NEUTROPHILS % 77.6 % (38.7-80.0); PLATELET COUNT 170 x10e3/uL (140-360); RED BLOOD COUNT 2.58 x10e6/uL (3.6-5.1); RED CELL DISTRIBUTION WIDTH 15.6 % (11.7-14.4)
[2021-02-06 06:27] LABS: HEMATOCRIT 21.4 % (34.2-44.1)
[2021-02-06 06:41] LABS: ANION GAP 8.3 mmol/L (8-16); BLOOD UREA NITROGEN 10 mg/dL (7-26); BUN/CREATININE RATIO 17 (6-25); CARBON DIOXIDE 17 mmol/L (22-29); CHLORIDE 118 mmol/L (98-107); CREATININE, SERUM 0.58 mg/dL (0.57-1.11); EST GLOMERULAR FILTRATION RATE > 60 ML/MIN (60-); GLUCOSE 150 mg/dL (74-118); POTASSIUM 3.3 mmol/L (3.5-5.1); SODIUM 140 mmol/L (136-145)
[2021-02-06 06:45] LABS: CALCIUM 6.4 mg/dL (8.4-10.2)
[2021-02-06] MEDS ORDERED: SODIUM CHLORIDE 0.9% 250ML 250 ML IV ONE (06:45)
[2021-02-06] MEDS: SODIUM CHLORIDE 0.9% 1000ML 1,000 ML IV SCH ×3 (07:30→23:55)
[2021-02-06] MEDS: FLUCONAZOLE 100 MG TAB PO SCH (08:14)
[2021-02-06] MEDS: ACETAMINOPHEN 325 MG TAB PO PRN (08:15)
[2021-02-06] MEDS: METHADONE HCL 10 MG TAB PO SCH ×2 (08:15→20:18)
[2021-02-06] MEDS: DAPTOMYCIN 500mg 10ML 400 MG in SODIUM CHLORIDE 0.9% 100 ML IV SCH (12:55)
[2021-02-06] MEDS ORDERED: POTASSIUM CHLORIDE 20 MEQ TAB CR PO ONE (13:30)
[2021-02-06] MEDS: NOREPINEPHRINE 8 MG/D5W 250 ML 250 ML IV SCH (14:45)
[2021-02-06] MEDS: ZOLPIDEM TARTRATE 10 MG TAB PO PRN (21:16)
[2021-02-07] VITALS (20 sets, daily range): BP systolic 96–133; BP diastolic 54–99
[2021-02-07] MEDS: ONDANSETRON HCL INJ 2MG/ML 2ML 2 MG/ML VIAL IV PRN (01:30)
[2021-02-07] MEDS: ACETAMINOPHEN 325 MG TAB PO PRN ×3 (03:30→19:38)
[2021-02-07] MEDS: ALBUTEROL SULF 0.083% NEB SOLN 3 ML NEB NEB SCH ×3 (04:24→10:30)
[2021-02-07] MEDS: SODIUM CHLORIDE 0.9% 1000ML 1,000 ML IV SCH (06:07)
[2021-02-07] MEDS: IPRATROPIUM BROMIDE 0.02% 2.5 ML NEB NEB SCH ×3 (06:45→12:00)
[2021-02-07 06:51] LABS: BASOPHILS # (AUTO) 0.1 (0.0-0.1); BASOPHILS % 0.5 % (0.0-1.0); EOSINOPHILS # (AUTO) 0.2 (0.0-0.4); EOSINOPHILS % 1.4 % (0.0-6.0); HEMATOCRIT 23.4 % (34.2-44.1); HEMOGLOBIN 7.7 g/dL (12.0-16.0); LYMPHOCYTES # (AUTO) 1.9 (1.0-3.2); LYMPHOCYTES % 17.9 % (18.0-39.1); MEAN CORPUSCULAR HEMOGLOBIN 27.9 pg (28-32); MEAN CORPUSCULAR HGB CONC 32.9 g/dL (31-35); MEAN CORPUSCULAR VOLUME 84.8 fL (81-99); MONOCYTES # (AUTO) 0.7 (0.2-0.8); MONOCYTES % 6.8 % (4.4-11.3); NEUTROPHILS # (AUTO) 7.7 (2.1-6.9); NEUTROPHILS % 72.5 % (38.7-80.0); PLATELET COUNT 203 x10e3/uL (140-360); RED BLOOD COUNT 2.76 x10e6/uL (3.6-5.1); RED CELL DISTRIBUTION WIDTH 15.8 % (11.7-14.4)
[2021-02-07 07:05] LABS: ALANINE AMINOTRANSFERASE 28 IU/L (0-55); ALBUMIN 1.8 g/dL (3.5-5.0); ALBUMIN/GLOBULIN RATIO 0.5 (0.8-2.0); ALKALINE PHOSPHATASE 58 IU/L (40-150); BLOOD UREA NITROGEN < 5 mg/dL (7-26); CALCIUM 7.4 mg/dL (8.4-10.2); CARBON DIOXIDE 22 mmol/L (22-29); CHLORIDE 111 mmol/L (98-107); CREATININE, SERUM 0.58 mg/dL (0.57-1.11); EST GLOMERULAR FILTRATION RATE > 60 ML/MIN (60-); GLUCOSE 85 mg/dL (74-118); SODIUM 141 mmol/L (136-145)
[2021-02-07 07:09] LABS: BUN/CREATININE RATIO 9 (6-25)
[2021-02-07 07:51] LABS: % IRON SATURATION 5 % (15-50); IRON 10 ug/dL (50-170); TOTAL IRON BINDING CAPACITY 188 ug/dL (261-478); TRANSFERRIN 134 mg/dL (180-382)
[2021-02-07] MEDS: METHADONE HCL 10 MG TAB PO SCH ×3 (08:33→21:53)
[2021-02-07] MEDS: FLUCONAZOLE 100 MG TAB PO SCH (08:33)
[2021-02-07] MEDS: DAPTOMYCIN 500mg 10ML 400 MG in SODIUM CHLORIDE 0.9% 100 ML IV SCH (13:54)
[2021-02-07] MEDS: NOREPINEPHRINE 8 MG/D5W 250 ML 250 ML IV SCH (14:45)
[2021-02-07] MEDS: ZOLPIDEM TARTRATE 10 MG TAB PO PRN (21:53)
[2021-02-08] VITALS (8 sets, daily range): BP systolic 109–143; BP diastolic 85–96
[2021-02-08 08:26] LABS: BASOPHILS # (AUTO) 0.1 (0.0-0.1); BASOPHILS % 0.4 % (0.0-1.0); EOSINOPHILS # (AUTO) 0.1 (0.0-0.4); EOSINOPHILS % 0.9 % (0.0-6.0); HEMATOCRIT 27.3 % (34.2-44.1); HEMOGLOBIN 8.7 g/dL (12.0-16.0); LYMPHOCYTES # (AUTO) 1.9 (1.0-3.2); LYMPHOCYTES % 15.9 % (18.0-39.1); MEAN CORPUSCULAR HEMOGLOBIN 27.4 pg (28-32); MEAN CORPUSCULAR HGB CONC 31.9 g/dL (31-35); MEAN CORPUSCULAR VOLUME 85.8 fL (81-99); MONOCYTES # (AUTO) 0.7 (0.2-0.8); MONOCYTES % 5.6 % (4.4-11.3); NEUTROPHILS # (AUTO) 9.2 (2.1-6.9); NEUTROPHILS % 76.3 % (38.7-80.0); PLATELET COUNT 305 x10e3/uL (140-360); RED BLOOD COUNT 3.18 x10e6/uL (3.6-5.1)
[2021-02-08] MEDS: METHADONE HCL 10 MG TAB PO SCH ×2 (08:50→20:14)
[2021-02-08] MEDS: FLUCONAZOLE 100 MG TAB PO SCH (08:50)
[2021-02-08] MEDS: IRON SUCROSE 100 MG in SODIUM CHLORIDE 0.9% 100 ML 100 ML IV SCH (10:30)
[2021-02-08] MEDS: DAPTOMYCIN 500mg 10ML 400 MG in SODIUM CHLORIDE 0.9% 100 ML IV SCH (12:00)
[2021-02-08] MEDS ORDERED: SODIUM CHLORIDE 0.9% 250ML 250 ML ONE (12:00)
[2021-02-08] MEDS: ACETAMINOPHEN 325 MG TAB PO PRN (20:00)
[2021-02-08] MEDS: ZOLPIDEM TARTRATE 10 MG TAB PO PRN (22:48)
[2021-02-09] VITALS (8 sets, daily range): BP systolic 86–130; BP diastolic 57–93
[2021-02-09] MEDS: ACETAMINOPHEN 325 MG TAB PO PRN ×3 (03:06→21:34)
[2021-02-09] MEDS: ONDANSETRON HCL INJ 2MG/ML 2ML 2 MG/ML VIAL IV PRN (03:30)
[2021-02-09 07:08] LABS: BASOPHILS # (AUTO) 0.1 (0.0-0.1); BASOPHILS % 0.3 % (0.0-1.0); EOSINOPHILS # (AUTO) 0.1 (0.0-0.4); EOSINOPHILS % 0.5 % (0.0-6.0); HEMATOCRIT 26.4 % (34.2-44.1); HEMOGLOBIN 8.5 g/dL (12.0-16.0); LYMPHOCYTES # (AUTO) 1.7 (1.0-3.2); LYMPHOCYTES % 11.7 % (18.0-39.1); MEAN CORPUSCULAR HEMOGLOBIN 27.4 pg (28-32); MEAN CORPUSCULAR HGB CONC 32.2 g/dL (31-35); MEAN CORPUSCULAR VOLUME 85.2 fL (81-99); MONOCYTES # (AUTO) 0.6 (0.2-0.8); MONOCYTES % 4.1 % (4.4-11.3); NEUTROPHILS # (AUTO) 11.9 (2.1-6.9); NEUTROPHILS % 81.7 % (38.7-80.0); PLATELET COUNT 366 x10e3/uL (140-360); RED CELL DISTRIBUTION WIDTH 15.9 % (11.7-14.4)
[2021-02-09 07:50] LABS: ALANINE AMINOTRANSFERASE 28 IU/L (0-55); ALBUMIN 1.9 g/dL (3.5-5.0); ALBUMIN/GLOBULIN RATIO 0.5 (0.8-2.0); ALKALINE PHOSPHATASE 78 IU/L (40-150); ANION GAP 11.5 mmol/L (8-16); BLOOD UREA NITROGEN < 5 mg/dL (7-26); CALCIUM 7.7 mg/dL (8.4-10.2); CARBON DIOXIDE 27 mmol/L (22-29); CHLORIDE 105 mmol/L (98-107); CREATININE, SERUM 0.62 mg/dL (0.57-1.11); EST GLOMERULAR FILTRATION RATE > 60 ML/MIN (60-); GLUCOSE 80 mg/dL (74-118); POTASSIUM 3.5 mmol/L (3.5-5.1); SODIUM 140 mmol/L (136-145)
[2021-02-09 07:52] LABS: BUN/CREATININE RATIO 8 (6-25)
[2021-02-09 07:53] LABS: MAGNESIUM 1.1 MG/DL (1.3-2.1)
[2021-02-09] MEDS: HYDROMORPHONE 2MG/ML 2 MG/ML ML IV PRN ×3 (08:25→21:03)
[2021-02-09] MEDS: FLUCONAZOLE 100 MG TAB PO SCH (08:25)
[2021-02-09] MEDS: IRON SUCROSE 100 MG in SODIUM CHLORIDE 0.9% 100 ML 100 ML IV SCH (10:47)
[2021-02-09] MEDS: HYDROCODONE/APAP 10MG-325MG TAB PO PRN ×3 (11:14→22:44)
[2021-02-09] MEDS: DAPTOMYCIN 500mg 10ML 400 MG in SODIUM CHLORIDE 0.9% 100 ML IV SCH (13:00)
[2021-02-09] MEDS ORDERED: MAGNESIUM SULFATE 2GM/50ML 50 ML IV ONE ×2 (15:00→19:00)
[2021-02-09] MEDS: SODIUM CHLORIDE 0.9% 250ML 250 ML IV SCH (18:45)
[2021-02-10] VITALS (8 sets, daily range): BP systolic 90–142; BP diastolic 55–85
[2021-02-10] MEDS: HYDROMORPHONE 2MG/ML 2 MG/ML ML IV PRN ×5 (02:12→22:17)
[2021-02-10 06:17] LABS: BASOPHILS % 0.3 % (0.0-1.0); EOSINOPHILS # (AUTO) 0.1 (0.0-0.4); EOSINOPHILS % 0.8 % (0.0-6.0); HEMATOCRIT 26.2 % (34.2-44.1); HEMOGLOBIN 8.3 g/dL (12.0-16.0); LYMPHOCYTES # (AUTO) 1.4 (1.0-3.2); LYMPHOCYTES % 10.5 % (18.0-39.1); MEAN CORPUSCULAR HEMOGLOBIN 27.3 pg (28-32); MEAN CORPUSCULAR HGB CONC 31.7 g/dL (31-35); MEAN CORPUSCULAR VOLUME 86.2 fL (81-99); MONOCYTES # (AUTO) 0.5 (0.2-0.8); MONOCYTES % 3.8 % (4.4-11.3); NEUTROPHILS # (AUTO) 11.3 (2.1-6.9); NEUTROPHILS % 83.7 % (38.7-80.0); PLATELET COUNT 325 x10e3/uL (140-360); RED BLOOD COUNT 3.04 x10e6/uL (3.6-5.1); RED CELL DISTRIBUTION WIDTH 16.2 % (11.7-14.4)
[2021-02-10 06:41] LABS: ALANINE AMINOTRANSFERASE 25 IU/L (0-55); ALBUMIN 1.9 g/dL (3.5-5.0); ALBUMIN/GLOBULIN RATIO 0.5 (0.8-2.0); ALKALINE PHOSPHATASE 84 IU/L (40-150); ANION GAP 13.7 mmol/L (8-16); BLOOD UREA NITROGEN 5 mg/dL (7-26); BUN/CREATININE RATIO 8 (6-25); CALCIUM 7.3 mg/dL (8.4-10.2); CARBON DIOXIDE 27 mmol/L (22-29); CHLORIDE 103 mmol/L (98-107); CREATININE, SERUM 0.59 mg/dL (0.57-1.11); EST GLOMERULAR FILTRATION RATE > 60 ML/MIN (60-); GLUCOSE 98 mg/dL (74-118); MAGNESIUM 1.9 MG/DL (1.3-2.1); POTASSIUM 3.7 mmol/L (3.5-5.1); SODIUM 140 mmol/L (136-145)
[2021-02-10] MEDS: FLUCONAZOLE 100 MG TAB PO SCH (08:08)
[2021-02-10] MEDS: HYDROCODONE/APAP 10MG-325MG TAB PO PRN ×2 (09:00→14:50)
[2021-02-10] MEDS: IRON SUCROSE 100 MG in SODIUM CHLORIDE 0.9% 100 ML 100 ML IV SCH (10:41)
[2021-02-10] MEDS: DAPTOMYCIN 500mg 10ML 400 MG in SODIUM CHLORIDE 0.9% 100 ML IV SCH (12:22)
[2021-02-10] MEDS: ACETAMINOPHEN 325 MG TAB PO PRN (17:15)
[2021-02-10] MEDS ORDERED: CEFAZOLIN SOD 1 GM VIAL IV SCH (22:00)
[2021-02-10] MEDS: CEFAZOLIN SOD 2 GM/NS 50ML 50 ML IV SCH (22:20)
[2021-02-10] MEDS ORDERED: SODIUM CHLORIDE 0.9% 250ML 250 ML ONE (22:21)
[2021-02-11] VITALS (8 sets, daily range): BP systolic 98–127; BP diastolic 66–93
[2021-02-11] MEDS: ACETAMINOPHEN 325 MG TAB PO PRN (00:17)
[2021-02-11] MEDS: HYDROCODONE/APAP 10MG-325MG TAB PO PRN ×5 (01:40→22:57)
[2021-02-11] MEDS: HYDROMORPHONE 2MG/ML 2 MG/ML ML IV PRN ×5 (03:07→20:20)
[2021-02-11] MEDS: CEFAZOLIN SOD 2 GM/NS 50ML 50 ML IV SCH ×3 (06:22→20:20)
[2021-02-11] MEDS: FLUCONAZOLE 100 MG TAB PO SCH (08:05)
[2021-02-11] MEDS: IRON SUCROSE 100 MG in SODIUM CHLORIDE 0.9% 100 ML 100 ML IV SCH (11:55)
[2021-02-11] MEDS: ZOLPIDEM TARTRATE 10 MG TAB PO PRN (22:57)
[2021-02-12] VITALS (8 sets, daily range): BP systolic 100–129; BP diastolic 63–97
[2021-02-12] MEDS: ACETAMINOPHEN 325 MG TAB PO PRN ×2 (00:16→08:21)
[2021-02-12] MEDS: HYDROMORPHONE 2MG/ML 2 MG/ML ML IV PRN ×5 (00:38→21:51)
[2021-02-12] MEDS: CEFAZOLIN SOD 2 GM/NS 50ML 50 ML IV SCH (05:13)
[2021-02-12] MEDS: HYDROCODONE/APAP 10MG-325MG TAB PO PRN ×5 (05:13→23:41)
[2021-02-12] MEDS: FLUCONAZOLE 100 MG TAB PO SCH (08:21)
[2021-02-12] MEDS: IRON SUCROSE 100 MG in SODIUM CHLORIDE 0.9% 100 ML 100 ML IV SCH (09:04)
[2021-02-12] MEDS: CEFAZOLIN SOD 2 GM in DEXTROSE 5% 50ML 50 ML IV SCH ×2 (14:07→22:09)
[2021-02-13] VITALS: BP 119/84
[2021-02-13] MEDS: HYDROMORPHONE 2MG/ML 2 MG/ML ML IV PRN ×4 (02:34→14:45)
[2021-02-13 04:00] VITALS: BP 115/77
[2021-02-13] MEDS: ACETAMINOPHEN 325 MG TAB PO PRN (04:24)
[2021-02-13] MEDS: HYDROCODONE/APAP 10MG-325MG TAB PO PRN ×2 (05:21→09:35)
[2021-02-13] MEDS: CEFAZOLIN SOD 2 GM in DEXTROSE 5% 50ML 50 ML IV SCH ×2 (06:40→13:30)
[2021-02-13 07:08] LABS: BASOPHILS # (AUTO) 0.1 (0.0-0.1); BASOPHILS % 0.5 % (0.0-1.0); EOSINOPHILS # (AUTO) 0.1 (0.0-0.4); EOSINOPHILS % 0.6 % (0.0-6.0); HEMATOCRIT 26.6 % (34.2-44.1); HEMOGLOBIN 8.4 g/dL (12.0-16.0); LYMPHOCYTES # (AUTO) 2.3 (1.0-3.2); LYMPHOCYTES % 22.7 % (18.0-39.1); MEAN CORPUSCULAR HEMOGLOBIN 26.8 pg (28-32); MEAN CORPUSCULAR HGB CONC 31.6 g/dL (31-35); MEAN CORPUSCULAR VOLUME 84.7 fL (81-99); MONOCYTES # (AUTO) 0.6 (0.2-0.8); MONOCYTES % 6.1 % (4.4-11.3); PLATELET COUNT 357 x10e3/uL (140-360); RED BLOOD COUNT 3.14 x10e6/uL (3.6-5.1); RED CELL DISTRIBUTION WIDTH 16.1 % (11.7-14.4)
[2021-02-13 07:25] LABS: ALANINE AMINOTRANSFERASE 12 IU/L (0-55); ALBUMIN 1.9 g/dL (3.5-5.0); ALBUMIN/GLOBULIN RATIO 0.4 (0.8-2.0); ALKALINE PHOSPHATASE 100 IU/L (40-150); ANION GAP 14.6 mmol/L (8-16); BLOOD UREA NITROGEN < 5 mg/dL (7-26); CALCIUM 7.6 mg/dL (8.4-10.2); CARBON DIOXIDE 25 mmol/L (22-29); CHLORIDE 103 mmol/L (98-107); CREATININE, SERUM 0.61 mg/dL (0.57-1.11); EST GLOMERULAR FILTRATION RATE > 60 ML/MIN (60-); GLUCOSE 91 mg/dL (74-118); MAGNESIUM 1.6 MG/DL (1.3-2.1); POTASSIUM 3.6 mmol/L (3.5-5.1); SODIUM 139 mmol/L (136-145)
[2021-02-13 07:26] LABS: BUN/CREATININE RATIO 8 (6-25)
[2021-02-13 08:45] VITALS: BP 109/73
[2021-02-13] MEDS: FLUCONAZOLE 100 MG TAB PO SCH (09:00)
[2021-02-13] MEDS: IRON SUCROSE 100 MG in SODIUM CHLORIDE 0.9% 100 ML 100 ML IV SCH (10:30)
[2021-02-13 12:03] VITALS: BP 117/76
[2021-02-13] MEDS ORDERED: KEFLEX125 MG/5 M PO ×2 (12:11→12:17)
[2021-02-13] MEDS ORDERED: ONDANSETRON HCL 4 MG ORAL DISINTEGRATING TAB PO PRN (12:45)
== END 2021-02-13 15:54 | disposition home or self-care (01) | DRG 871 ==
LOC: ER 15:48 → ERHOLD 22:00 → ICU 23:20 → MED/SURG2 02-07 15:29
PROVIDERS: ADMIT Internal Medicine; ATTEND Internal Medicine
PROC: 02HV33Z Insertion of Infusion Device into Superior Vena Cava, Percutaneous Approach (ICD-10-PCS; principal; 2021-02-04)
PROC: B548ZZA Ultrasonography of Superior Vena Cava, Guidance (ICD-10-PCS; 2021-02-04)
PROC: 30233N1 Transfusion of Nonautologous Red Blood Cells into Peripheral Vein, Percutaneous Approach (ICD-10-PCS; 2021-02-05)
DX: A41.9 Sepsis, unspecified organism (principal); R65.21 Severe sepsis with septic shock; J69.0 Pneumonitis due to inhalation of food and vomit; I33.0 Acute and subacute infective endocarditis; J96.01 Acute respiratory failure with hypoxia; E87.2 Acidosis; N17.9 Acute kidney failure, unspecified; M62.82 Rhabdomyolysis; E46 Unspecified protein-calorie malnutrition; D69.6 Thrombocytopenia, unspecified; E83.51 Hypocalcemia; I95.9 Hypotension, unspecified; E87.6 Hypokalemia; D64.9 Anemia, unspecified; D72.829 Elevated white blood cell count, unspecified; F14.10 Cocaine abuse, uncomplicated; F11.10 Opioid abuse, uncomplicated; Z20.822 Contact with and (suspected) exposure to COVID-19; B95.61 Methicillin susceptible Staphylococcus aureus infection as the cause of diseases classified elsewhere; Z91.19 Patient's noncompliance with other medical treatment and regimen
CPT/HCPCS: 36415; 36569; 71045; 71260; 80048; 80053; 82550; 82553; 83540; 83605; 83735; 83880; 84466; 84484; 84702; 85025; 85379; 85610; 86850; 86900; 86920; 87040; 87071; 87186; 87205; 93005; 93306; 94640; 99284; J0610; J0690; J0692; J1756; J2310; J2405; J3475; J7030; J7050; P9016; Q9967; U0002

== ENCOUNTER 2021-07-01 15:40 | Inpatient (IN) | payer BC ==
[~2021-07-01] VITALS: Ht 167.6 cm; Wt 59.0 kg
[~2021-07-01 15:40] MED LIST: KEFLEX125 MG/5 M PO
[2021-07-01] MEDS ORDERED: SODIUM CHLORIDE 0.9% 1000ML 1,000 ML IV SCH ×2 (16:00→20:45)
[2021-07-01] MEDS ORDERED: Vancomycin IV 1 GM in SODIUM CHLORIDE 0.9% 250ML 250 ML IV STA (16:02)
[2021-07-01 16:09] LABS: BASOPHILS # (AUTO) 0.1 (0.0-0.1); BASOPHILS % 0.3 % (0.0-1.0); EOSINOPHILS # (AUTO) 0.1 (0.0-0.4); EOSINOPHILS % 0.3 % (0.0-6.0); HEMATOCRIT 30.6 % (34.2-44.1); HEMOGLOBIN 9.6 g/dL (12.0-16.0); LYMPHOCYTES # (AUTO) 0.9 (1.0-3.2); LYMPHOCYTES % 5.6 % (18.0-39.1); MEAN CORPUSCULAR HEMOGLOBIN 25.1 pg (28-32); MEAN CORPUSCULAR HGB CONC 31.4 g/dL (31-35); MEAN CORPUSCULAR VOLUME 79.9 fL (81-99); MONOCYTES # (AUTO) 0.6 (0.2-0.8); MONOCYTES % 3.9 % (4.4-11.3); NEUTROPHILS # (AUTO) 13.6 (2.1-6.9); NEUTROPHILS % 88.9 % (38.7-80.0); PLATELET COUNT 209 x10e3/uL (140-360); RED BLOOD COUNT 3.83 x10e6/uL (3.6-5.1); RED CELL DISTRIBUTION WIDTH 16.9 % (11.7-14.4)
[2021-07-01] MEDS ORDERED: ONDANSETRON HCL INJ 2MG/ML 2ML 2 MG/ML VIAL IV STA (16:24)
[2021-07-01 16:25] LABS: ALBUMIN 2.3 g/dL (3.5-5.0); ALBUMIN/GLOBULIN RATIO 0.5 (0.8-2.0); ANION GAP 19.8 mmol/L (8-16); CALCIUM 8.2 mg/dL (8.4-10.2); CREATININE, SERUM 1.05 mg/dL (0.57-1.11)
[2021-07-01 16:26] LABS: POTASSIUM 1.8 mmol/L (3.5-5.1)
[2021-07-01] MEDS ORDERED: ACETAMINOPHEN 325 MG TAB PO ONE ×2 (16:30→16:45)
[2021-07-01] MEDS ORDERED: SODIUM CHLORIDE 0.9% 250ML 250 ML ONE (16:31)
[2021-07-01] MEDS ORDERED: CEFEPIME HCL 1 GM VIAL ONE (16:31)
[2021-07-01] MEDS ORDERED: Vancomycin IV 1 GM VIAL ONE (16:31)
[2021-07-01] MEDS ORDERED: LACTATED RINGER'S 1,000 ML INJ ONE (16:45)
[2021-07-01] MEDS ORDERED: KETOROLAC TROMETHAMINE 30 MG/ML VIAL IV STA (16:45)
[2021-07-01] MEDS ORDERED: POTASSIUM CHLORIDE 20 MEQ TAB CR PO STA (16:46)
[2021-07-01] MEDS: CEFEPIME 1 GM in SODIUM CHLORIDE 0.9% 50ML 50 ML IV SCH (16:50)
[2021-07-01] MEDS ORDERED: POTASSIUM CHLORIDE 20MEQ/100ML 200 ML IV ONE (17:00)
[2021-07-01 17:55] LABS: CLARITY,URINE CLEAR (CLEAR); COLOR,URINE YELLOW (YELLOW); LEUKOCYTE ESTERASE ,URINE NEGATIVE (NEGATIVE)
[2021-07-01 17:56] LABS: NITRITE,URINE NEGATIVE (NEGATIVE); PROTEIN,URINE DIPSTICK 2+ (NEGATIVE)
[2021-07-01 17:57] LABS: KETONES,URINE NEGATIVE (NEGATIVE); URINE UROBILINOGEN 0.2 mg/dL (0.2 - 1)
[2021-07-01 18:01] LABS: AMPHETAMINES SCREEN,URINE NEGATIVE (NEGATIVE); BENZODIAZEPINES SCREEN,URINE NEGATIVE (NEGATIVE); PHENCYCLIDINE SCREEN,URINE NEGATIVE (NEGATIVE)
[2021-07-01 18:16] LABS: BACTERIA,URINE MANY /HPF; EPITHELIAL CELLS,URINE MANY /LPF; RBC,URINE 0-5 /HPF (0-5); WBC,URINE (MAN) 0-5 /HPF (0-5)
[2021-07-01] MEDS ORDERED: IOPAMIDOL 370 MG/ML 200 ML INFUS..BTL INJ ONE (19:12)
[2021-07-01] MEDS ORDERED: SODIUM CHLORIDE 0.9% 50ML 50 ML ONE (19:12)
[2021-07-02] VITALS (7 sets, daily range): BP systolic 92–114; BP diastolic 60–83
[2021-07-02 00:50] LABS: ANION GAP 13.4 mmol/L (8-16); CALCIUM 7.2 mg/dL (8.4-10.2); CREATININE, SERUM 0.93 mg/dL (0.57-1.11)
[2021-07-02 00:55] LABS: POTASSIUM 2.4 mmol/L (3.5-5.1)
[2021-07-02] MEDS ORDERED: HYDRALAZINE HCL 20 MG/ML VIAL IV PRN (01:15)
[2021-07-02] MEDS ORDERED: ALBUTEROL/IPRATROPIUM 3 ML NEB NEB PRN (01:15)
[2021-07-02] MEDS ORDERED: ACETAMINOPHEN 325 MG TAB PO PRN (01:15)
[2021-07-02] MEDS ORDERED: DOCUSATE SODIUM 100 MG CAP PO PRN (01:15)
[2021-07-02] MEDS ORDERED: BENZONATATE 100 MG CAP PO PRN (01:15)
[2021-07-02] MEDS ORDERED: LIDOCAINE 4% PATCH TP PRN (01:15)
[2021-07-02] MEDS ORDERED: ONDANSETRON HCL INJ 2MG/ML 2ML 2 MG/ML VIAL IV PRN (01:15)
[2021-07-02] MEDS ORDERED: TRAMADOL HCL 50 MG TAB PO PRN (01:15)
[2021-07-02] MEDS ORDERED: PHENAZOPYRIDINE HCL 100 MG TAB PO PRN (01:15)
[2021-07-02] MEDS ORDERED: DEXTROSE 50% SYRINGE 50 ML IV PRN (01:15)
[2021-07-02] MEDS ORDERED: POTASSIUM CHLORIDE 20MEQ/100ML 100 ML IV ONE (01:15)
[2021-07-02] MEDS ORDERED: SIMETHICONE 80 MG CHEW PO PRN (01:15)
[2021-07-02] MEDS: MIDODRINE HCL 5 MG TABLET PO SCH ×4 (01:30→16:00)
[2021-07-02] MEDS: SODIUM CHLORIDE 0.9% 1000ML 1,000 ML IV SCH ×3 (02:25→20:36)
[2021-07-02] MEDS ORDERED: INFLUENZA VIRUS VAC SPLIT INJ 0.5 ML SYR IM SCH (02:52)
[2021-07-02] MEDS ORDERED: METHADONE PO (02:59)
[2021-07-02] MEDS ORDERED: Vancomycin IV 1 GM in SODIUM CHLORIDE 0.9% 250ML 250 ML IV SCH (05:00)
[2021-07-02] MEDS: CEFEPIME 1 GM in SODIUM CHLORIDE 0.9% 50ML 50 ML IV SCH ×2 (05:19→21:35)
[2021-07-02] MEDS: PANTOPRAZOLE SOD 40 MG TABEC PO SCH (07:30)
[2021-07-02 07:35] LABS: BASOPHILS % 0.5 % (0.0-1.0); EOSINOPHILS % 0.5 % (0.0-6.0); HEMATOCRIT 25.7 % (34.2-44.1); HEMOGLOBIN 8.1 g/dL (12.0-16.0); LYMPHOCYTES # (AUTO) 2.2 (1.0-3.2); LYMPHOCYTES % 27.7 % (18.0-39.1); MEAN CORPUSCULAR HEMOGLOBIN 25.2 pg (28-32); MEAN CORPUSCULAR HGB CONC 31.5 g/dL (31-35); MEAN CORPUSCULAR VOLUME 80.1 fL (81-99); MONOCYTES # (AUTO) 0.6 (0.2-0.8); MONOCYTES % 7.2 % (4.4-11.3); NEUTROPHILS % 63.6 % (38.7-80.0); PLATELET COUNT 139 x10e3/uL (140-360); RED BLOOD COUNT 3.21 x10e6/uL (3.6-5.1); RED CELL DISTRIBUTION WIDTH 17.1 % (11.7-14.4)
[2021-07-02 08:00] LABS: ALBUMIN 1.9 g/dL (3.5-5.0); ALBUMIN/GLOBULIN RATIO 0.5 (0.8-2.0); ANION GAP 14.4 mmol/L (8-16); CALCIUM 7.4 mg/dL (8.4-10.2); CREATININE, SERUM 0.91 mg/dL (0.57-1.11)
[2021-07-02 08:04] LABS: POTASSIUM 2.4 mmol/L (3.5-5.1)
[2021-07-02] MEDS ORDERED: POTASSIUM CHLORIDE 10MEQ EA PO SCH (09:00)
[2021-07-02 09:19] LABS: EOSINOPHILS % (MANUAL) 2 % (0-7); LYMPHOCYTES % (MANUAL) 24 % (19-48); MONOCYTES % (MANUAL) 3 % (3.4-9.0); NEUTROPHILS % (MANUAL) 71 % (40-74); PLATELET ESTIMATE SLIGHTLY DECREASED; PLATELET MORPHOLOGY COMMENT NORMAL; RBC MORPHOLOGY COMMENT NORMAL
[2021-07-02] MEDS ORDERED: POTASSIUM CHLORIDE 20MEQ/100ML 300 ML IV ONE (09:30)
[2021-07-02] MEDS ORDERED: MAGNESIUM SULFATE 2GM/50ML 50 ML IV ONE (10:45)
[2021-07-02] MEDS: METHADONE HCL 10 MG TAB PO SCH ×2 (11:00→20:31)
[2021-07-02] MEDS: Vancomycin IV 750 MG in SODIUM CHLORIDE 0.9% 250ML 150 ML IV SCH (21:36)
[2021-07-02] MEDS: DIPHENHYDRAMINE HCL 25 MG CAP PO PRN (21:54)
[2021-07-02] MEDS: MELATONIN 5 MG TABLET PO PRN (21:54)
[2021-07-02] MEDS: ENOXAPARIN SOD INJ 40 MG/0.4 ML SYR SC SCH (22:02)
[2021-07-03] VITALS (8 sets, daily range): BP systolic 109–140; BP diastolic 86–106
[2021-07-03 05:58] LABS: BASOPHILS # (AUTO) 0.1 (0.0-0.1); EOSINOPHILS # (AUTO) 0.1 (0.0-0.4); EOSINOPHILS % 0.7 % (0.0-6.0); HEMATOCRIT 28.1 % (34.2-44.1); HEMOGLOBIN 8.8 g/dL (12.0-16.0); LYMPHOCYTES # (AUTO) 3.1 (1.0-3.2); LYMPHOCYTES % 29.6 % (18.0-39.1); MEAN CORPUSCULAR HGB CONC 31.3 g/dL (31-35); MEAN CORPUSCULAR VOLUME 79.8 fL (81-99); MONOCYTES # (AUTO) 0.7 (0.2-0.8); MONOCYTES % 6.9 % (4.4-11.3); NEUTROPHILS # (AUTO) 6.3 (2.1-6.9); NEUTROPHILS % 61.3 % (38.7-80.0); PLATELET COUNT 206 x10e3/uL (140-360); RED BLOOD COUNT 3.52 x10e6/uL (3.6-5.1); RED CELL DISTRIBUTION WIDTH 17.2 % (11.7-14.4)
[2021-07-03 06:23] LABS: ALBUMIN/GLOBULIN RATIO 0.5 (0.8-2.0); ANION GAP 15.8 mmol/L (8-16); CALCIUM 9.2 mg/dL (8.4-10.2); CREATININE, SERUM 0.79 mg/dL (0.57-1.11); POTASSIUM 3.8 mmol/L (3.5-5.1)
[2021-07-03] MEDS: CEFEPIME 1 GM in SODIUM CHLORIDE 0.9% 50ML 50 ML IV SCH ×2 (06:36→16:45)
[2021-07-03] MEDS: SODIUM CHLORIDE 0.9% 1000ML 1,000 ML IV SCH ×2 (06:36→16:45)
[2021-07-03 07:14] LABS: ERYTHROCYTE SEDIMENTATION RATE 73 mm/hr (0-20)
[2021-07-03 08:31] LABS: FERRITIN 10229.69 ng/mL (4.63-204.00)
[2021-07-03] MEDS ORDERED: GADOBENATE DIMEGLUMINE 1 ML IV ONE (08:38)
[2021-07-03] MEDS: Vancomycin IV 750 MG in SODIUM CHLORIDE 0.9% 250ML 150 ML IV SCH ×2 (08:58→21:05)
[2021-07-03] MEDS: PANTOPRAZOLE SOD 40 MG TABEC PO SCH (08:58)
[2021-07-03] MEDS: MIDODRINE HCL 5 MG TABLET PO SCH ×4 (08:58→17:28)
[2021-07-03] MEDS ORDERED: METHADONE PO SCH (09:00)
[2021-07-03] MEDS ORDERED: METHADONE HCL 10 MG TAB PO SCH (09:00)
[2021-07-03] MEDS: METHADONE HCL 10 MG TAB PO SCH (09:03)
[2021-07-03] MEDS: ENOXAPARIN SOD INJ 40 MG/0.4 ML SYR SC SCH (16:45)
[2021-07-04] VITALS (9 sets, daily range): BP systolic 122–143; BP diastolic 65–108
[2021-07-04] MEDS: CEFEPIME 1 GM in SODIUM CHLORIDE 0.9% 50ML 50 ML IV SCH (04:48)
[2021-07-04] MEDS: SODIUM CHLORIDE 0.9% 1000ML 1,000 ML IV SCH ×2 (04:48→10:34)
[2021-07-04] MEDS ORDERED: MIDODRINE HCL 5 MG TABLET PO SCH (08:00)
[2021-07-04] MEDS: Vancomycin IV 750 MG in SODIUM CHLORIDE 0.9% 250ML 150 ML IV SCH ×2 (08:58→21:44)
[2021-07-04] MEDS: MIDODRINE HCL 5 MG TABLET PO SCH (08:58)
[2021-07-04] MEDS: PANTOPRAZOLE SOD 40 MG TABEC PO SCH (08:58)
[2021-07-04] MEDS: METHADONE HCL 10 MG TAB PO SCH (09:28)
[2021-07-04 13:48] LABS: ALBUMIN 2.1 g/dL (3.5-5.0); ALBUMIN/GLOBULIN RATIO 0.5 (0.8-2.0); ANION GAP 15.2 mmol/L (8-16); CALCIUM 7.7 mg/dL (8.4-10.2); CREATININE, SERUM 0.82 mg/dL (0.57-1.11); POTASSIUM 3.2 mmol/L (3.5-5.1)
[2021-07-04] MEDS ORDERED: SODIUM CHLORIDE 0.9% 50ML 50 ML ONE (14:24)
[2021-07-04] MEDS ORDERED: IOPAMIDOL 370 MG/ML 200 ML INFUS..BTL INJ ONE (14:24)
[2021-07-04] MEDS: ENOXAPARIN SOD INJ 40 MG/0.4 ML SYR SC SCH (17:25)
[2021-07-04] MEDS: POTASSIUM CHLORIDE 20 MEQ TAB CR PO PRN (17:26)
[2021-07-05 08:44] VITALS: BP 130/100
[2021-07-05 08:51] VITALS: BP 130/100
[2021-07-05] MEDS: PANTOPRAZOLE SOD 40 MG TABEC PO SCH (09:07)
[2021-07-05] MEDS: METHADONE HCL 10 MG TAB PO SCH (09:07)
[2021-07-05] MEDS: Vancomycin IV 750 MG in SODIUM CHLORIDE 0.9% 250ML 150 ML IV SCH (09:07)
[2021-07-05 14:12] VITALS: BP 126/93
[2021-07-05] MEDS: ENOXAPARIN SOD INJ 40 MG/0.4 ML SYR SC SCH (16:52)
[2021-07-05 19:10] VITALS: BP 135/99
[2021-07-05 20:29] VITALS: BP 132/101
[2021-07-05 20:48] VITALS: BP 132/101
[2021-07-05] MEDS: MELATONIN 5 MG TABLET PO PRN (21:18)
[2021-07-05] MEDS: DIPHENHYDRAMINE HCL 25 MG CAP PO PRN (21:18)
[2021-07-06] VITALS: BP 152/109
[2021-07-06 05:37] LABS: BASOPHILS # (AUTO) 0.1 (0.0-0.1); BASOPHILS % 0.9 % (0.0-1.0); EOSINOPHILS # (AUTO) 0.2 (0.0-0.4); EOSINOPHILS % 3.2 % (0.0-6.0); HEMOGLOBIN 8.5 g/dL (12.0-16.0); LYMPHOCYTES # (AUTO) 2.5 (1.0-3.2); LYMPHOCYTES % 37.4 % (18.0-39.1); MEAN CORPUSCULAR HEMOGLOBIN 24.8 pg (28-32); MEAN CORPUSCULAR HGB CONC 30.4 g/dL (31-35); MEAN CORPUSCULAR VOLUME 81.6 fL (81-99); MONOCYTES # (AUTO) 0.6 (0.2-0.8); MONOCYTES % 8.9 % (4.4-11.3); NEUTROPHILS # (AUTO) 3.2 (2.1-6.9); NEUTROPHILS % 47.8 % (38.7-80.0); PLATELET COUNT 271 x10e3/uL (140-360); RED BLOOD COUNT 3.43 x10e6/uL (3.6-5.1); RED CELL DISTRIBUTION WIDTH 16.7 % (11.7-14.4)
[2021-07-06 06:10] LABS: CALCIUM 8.1 mg/dL (8.4-10.2); CARBON DIOXIDE 26 mmol/L (22-29); CHLORIDE 105 mmol/L (98-107); CREATININE, SERUM 0.73 mg/dL (0.57-1.11); EST GLOMERULAR FILTRATION RATE 93 ML/MIN (60-); GLUCOSE 77 mg/dL (74-118); SODIUM 143 mmol/L (136-145)
[2021-07-06 06:15] LABS: BUN/CREATININE RATIO 7 (6-25)
[2021-07-06 06:31] LABS: BLOOD UREA NITROGEN < 5 mg/dL (7-26)
[2021-07-06 07:51] VITALS: BP 135/101
[2021-07-06] MEDS: PANTOPRAZOLE SOD 40 MG TABEC PO SCH (09:06)
[2021-07-06] MEDS: METHADONE HCL 10 MG TAB PO SCH (09:07)
[2021-07-06 11:32] VITALS: BP 127/94
[2021-07-06 12:56] VITALS: BP 127/94
[2021-07-06 15:45] VITALS: BP 127/94
[2021-07-06] MEDS: ENOXAPARIN SOD INJ 40 MG/0.4 ML SYR SC SCH (18:14)
[2021-07-06 19:49] VITALS: BP 153/95
[2021-07-06] MEDS: MELATONIN 5 MG TABLET PO PRN (22:09)
[2021-07-06] MEDS: DIPHENHYDRAMINE HCL 25 MG CAP PO PRN (22:09)
[2021-07-07] VITALS: BP 136/97
[2021-07-07 00:23] VITALS: BP 153/95
[2021-07-07 00:28] VITALS: BP 153/95
[2021-07-07] MEDS: METHADONE HCL 10 MG TAB PO SCH ×2 (08:10→08:45)
[2021-07-07] MEDS: PANTOPRAZOLE SOD 40 MG TABEC PO SCH (08:10)
[2021-07-07 08:19] LABS: ALANINE AMINOTRANSFERASE 90 IU/L (0-55); ALBUMIN 2.2 g/dL (3.5-5.0); ALBUMIN/GLOBULIN RATIO 0.5 (0.8-2.0); ALKALINE PHOSPHATASE 165 IU/L (40-150); ANION GAP 13.7 mmol/L (8-16); BUN/CREATININE RATIO 7 (6-25); CALCIUM 8.3 mg/dL (8.4-10.2); CARBON DIOXIDE 28 mmol/L (22-29); CHLORIDE 105 mmol/L (98-107); CREATININE, SERUM 0.69 mg/dL (0.57-1.11); EST GLOMERULAR FILTRATION RATE 99 ML/MIN (60-); GLUCOSE 81 mg/dL (74-118); SODIUM 144 mmol/L (136-145)
[2021-07-07 08:23] LABS: POTASSIUM 2.7 mmol/L (3.5-5.1)
[2021-07-07 08:50] LABS: BLOOD UREA NITROGEN < 5 mg/dL (7-26)
[2021-07-07] MEDS: POTASSIUM CHLORIDE 20 MEQ TAB CR PO PRN ×2 (09:21→12:25)
[2021-07-07 11:46] VITALS: BP 138/103
[2021-07-07 12:01] VITALS: BP 138/103
== END 2021-07-07 15:07 | disposition short-term general hospital (02) | DRG 871 ==
LOC: ER 16:00 → ERHOLD 21:10 → MED/SURG3 07-02 02:16
PROVIDERS: ADMIT Internal Medicine; ATTEND Internal Medicine
DX: A41.01 Sepsis due to Methicillin susceptible Staphylococcus aureus (principal); I26.90 Septic pulmonary embolism without acute cor pulmonale; I76 Septic arterial embolism; R18.8 Other ascites; R19.7 Diarrhea, unspecified; R56.9 Unspecified convulsions; F19.10 Other psychoactive substance abuse, uncomplicated; Z91.19 Patient's noncompliance with other medical treatment and regimen; A49.01 Methicillin susceptible Staphylococcus aureus infection, unspecified site; R91.8 Other nonspecific abnormal finding of lung field; I07.9 Rheumatic tricuspid valve disease, unspecified; K76.1 Chronic passive congestion of liver; Z20.822 Contact with and (suspected) exposure to COVID-19
CPT/HCPCS: 36415; 70450; 70553; 71260; 74177; 80048; 80053; 80202; 80307; 81001; 82728; 83605; 83735; 84132; 84702; 85025; 85651; 87040; 87071; 87086; 87186; 87205; 93005; 93306; 96361; 99284; J0690; J0692; J1650; J1885; J3370; J3480; J7030; J7050; J7121; J7799; Q9967; U0002